=== PATIENT | female | born 1940 | race Hispanic/Latino ===

== ENCOUNTER 2019-11-01 08:10 | Day surgery (SDC) | payer MEDICARE ==
[2019-11-01] MEDS ORDERED: SODIUM CHLORIDE 0.9% 1000 ML 1,000 ML ONE (09:13)
--- NOTE | 2019-11-01 09:19 | Anesthesia Day of Surgery ---
Anesthesia Day of Surgery - Day of Surgery Patient Examined: Yes Patient H&P Reviewed: Yes Patient is NPO: Yes
--- NOTE | 2019-11-01 09:19 | Anesthesia Consultation ---
Anesthesia Consult and Med Hx Date of service: 11/01/19 - Airway Anesthetic Teeth Evaluation: Edentulous ROM Head & Neck: Adequate Mental/Hyoid Distance: Adequate Mallampati Class: Class II Intubation Access Assessment: Probably Good - Pulmonary Exam CTA: Yes - Cardiac Exam Cardiac Exam: RRR - Pre-Operative Health Status ASA Pre-Surgery Classification: ASA3 Proposed Anesthetic Plan: MAC - Pulmonary Hx Smoking: Yes Hx Respiratory Symptoms: No COPD: Yes Home Oxygen Therapy: No - Cardiovascular System Hx Hypertension: Yes (took antihypertensives this morning) Hx Coronary Artery Disease: Yes Hx Heart Attack/AMI: Yes (remote hx) Hx Percutaneous Transluminal Coronary Angioplasty (PTCA): Yes (x2, remote hx. Last dose ASA 7 days ago) Hx Cardia Arrhythmia: Yes (bradycardia) Hx Pacemaker: Yes Hx Internal Defibrillator: No - Central Nervous System CVA: No - Endocrine Hx Renal Disease: No Hx Liver Disease: No Hx Insulin Dependent Diabetes: No Hx Non-Insulin Dependent Diabetes: No Hx Thyroid Disease: No - Other Systems Hx Obesity: Yes - Additional Comments Anesthesia Medical History Comments: No hx anesthetic complications.
[2019-11-01] MEDS ORDERED: LIDOCAINE MPF (2%) 20 MG/1 ML VIAL 5 ML ONE (09:30)
[2019-11-01] MEDS ORDERED: SODIUM CHLORIDE 0.9% 1000 ML 1,000 ML IV SCH (11:30)
[2019-11-01] MEDS ORDERED: propofoL 200 MG/20 ML VIAL IV ONE ×2 (11:34→11:35)
[2019-11-01] MEDS ORDERED: fentaNYL 100 MCG/2 ML INJ ONE (11:34)
--- NOTE | 2019-11-01 12:03 | Short Stay Summary ---
Short Stay Documentation Date of service: 11/01/19 Narrative H&P: The patient presents for EGD and dilation of the esophagus for dysphagia and known stricture. - History Past Medical History: COPD, other (CKD) Past Surgical History: cholecystectomy, CABG, hysterectomy Social history: no significant social history, lives with family - Allergies and Medications Current Medications: Allergies acetaminophen [From Vicodin] Allergy (Verified 11/01/19 11:16) Unknown codeine Allergy (Verified 11/01/19 11:16) Unknown hydrocodone [From Vicodin] Allergy (Verified 11/01/19 11:16) Unknown iron Allergy (Verified 11/01/19 11:16) Unknown omeprazole Allergy (Verified 11/01/19 11:15) Unknown Home Medications Medication Instructions Recorded Confirmed Last Taken Type Albuterol Sulfate [Albuterol 0.63% 0.63 mg IH TID PRN 11/01/19 11/01/19 10/30/19 History NEBS] Aspirin [Adult Aspirin] 81 mg PO BID 11/01/19 11/01/19 10/28/19 History Cholecalciferol (Vitamin D3) 2,000 unit PO DAILY 11/01/19 11/01/19 Unknown History [Vitamin D3] Famotidine [Pepcid] 40 mg PO QHS 11/01/19 11/01/19 10/31/19 History Fluticasone/Salmeterol(Nf) [Advair 1 puff IH DAILY 11/01/19 11/01/19 10/31/19 History HFA 115-21 mcg] Hydralazine HCl 50 mg PO TID 11/01/19 11/01/19 10/31/19 History ISOSORBIDE MONOnitrate [Imdur ER] 30 mg PO DAILY 11/01/19 11/01/19 11/01/19 History Nitroglycerin (Nf) [Nitrostat] 0.3 mg SL PRN 11/01/19 11/01/19 10/17/19 History Pantoprazole [Protonix] 40 mg PO QDAY 11/01/19 11/01/19 10/31/19 History Polyethylene Glycol 3350 [Miralax] 255 gm PO PRN PRN 11/01/19 11/01/19 10/25/19 History Potassium Citrate [Potassium 10 meq PO DAILY 11/01/19 11/01/19 10/31/19 History Citrate ER] Rosuvastatin (Nf) [Crestor] 5 mg PO QHS 11/01/19 11/01/19 10/31/19 History Rosuvastatin (Nf) [Crestor] 5 mg PO QHS 11/01/19 11/01/19 10/31/19 History amLODIPine [Norvasc] 5 mg PO DAILY 11/01/19 11/01/19 11/01/19 History carvediloL [Coreg] 1 tab PO BID 11/01/19 11/01/19 11/01/19 07:30 History raNITIdine HCl [Zantac] 150 mg PO DAILY 11/01/19 11/01/19 10/31/19 History traMADoL [Ultram] 50 mg PO PRN 11/01/19 11/01/19 10/30/19 History Active Medications Sodium Chloride (Nacl 0.9% 1000 Ml) 1,000 mls @ 50 mls/hr IV DIRECT DERICK - Physical exam General appearance: no acute distress, well-nourished Integumentary: no rash, no growths, no abnormal pigmentation HEENT: Atraumatic, PERRLA, EOMI, Mucous membr. moist/pink Lungs: Normal air movement Breasts: deferred Heart: Regular rate, Normal S1, Normal S2, No murmurs Gastrointestinal: normoactive bowel sounds, no tenderness, no distended, no guarding, no obese Female Genitourinary: deferred Rectal Exam: deferred Extremities: no ischemia, pulses intact, pulses symmetrical, No edema, normal temperature, normal color, Full ROM Neurological: Normal gait, Normal speech, Strength at 5/5 X4 ext, Normal tone, Sensation intact, Cranial nerves 3-12 NL - Brief post op/procedure progress note Date of procedure: 11/01/19 Findings: see dictation Estimated blood loss: none Pathology: none Condition: stable - Disposition Condition at discharge: Good Disposition: DC-01 TO HOME OR SELFCARE - Discharge Diagnoses (1) Dysphagia Status: Acute (2) Esophageal stenosis Status: Acute Short Stay Discharge Plan Activity: other (no driving for 24 hours.) Weight Bearing Status: Full Weight Bearing Diet: advance as tolerated Follow up with: HEAVENLY HERZOG MD [Primary Care Provider] - 7 Days
--- NOTE | 2019-11-01 12:06 | Operative Report ---
Operative Report Operative Report: Date of procedure: 11/01/2019 Procedure: Esophagogastroduodenoscopy with balloon dilation of the distal esoph herman, 18 to 20 mm. Preprocedure diagnosis: Dysphagia to solid foods, history of a peptic stricture of the esophagus. Post procedure diagnosis: Moderate peptic stricture. Medium size hiatus hernia. Endoscopist: Dr. Loyd Anesthesia: Monitored anesthesia care per anesthesia department Medications: Propofol per anesthesia Estimated blood loss: 0 After careful discussion of the nature and purpose of the procedure as well as details the technique risks benefits and alternatives consent was obtained. The patient was placed in the left lateral decubitus position and medicated per anes thesia. The tip of the [employer] EQ 570 video scope was passed per orum under direct vision into the esophagus and advanced into the stomach and descending duodenum. The descending duodenum the duodenal bulb and pylorus were symmetrical and normal. The scope was withdrawn into the stomach and the stomach then gently insufflated with air. The antrum was normal. The stomach was further insufflated and the scope was then retroflexed and partially withdrawn. The cardia, fundus, and body of the stomach were within normal limits and easily distensible.a moderate sized hiatus hernia was present a pproximately 3 to 4 cm in length. The scope was then withdrawn in the forward position. The esophagogastric junction was at 35 cm. There was a stricture present at the esophagogastric junction although this provided no resistance to the scope movement. The esophageal body was otherwise normal throughout. Dilation was performed in light of symptoms. An 18 to 20 mm balloon was inserted in an uninflated state and positioned over the stricture. The balloon was insufflated gradually over 2 minutes. No bleeding or overt mucosal tear was evident. The procedure was was well tolerated and the patient was observed in recovery. Impressions: Peptic stricture. Status post dilation to 20 mm. Medium size hiatus hernia. Plan: Continue acid suppression. Redilate as needed. Office follow-up in 4 to 6 months. Electronically signed: Ezekiel Loyd MD
--- NOTE | 2019-11-01 12:20 | Post Anesthesia Evaluation ---
- Post Anesthesia Evaluation Patient Participated: Yes Airway Patent: Yes Stable Respiratory Function: Yes Nausea/Vomiting: No Temp > 96.8F: Yes Pain Manageable: Yes Adequeate Hydration: Yes Anesthesia Complications: No
[2019-11-01 12:28] VITALS: BP 157/58
== END 2019-11-01 13:10 | disposition home or self-care (01) ==
LOC: GIO 08:10
PROVIDERS: ATTEND Internal Medicine Gastroenterology
DX: R13.10 Dysphagia, unspecified (principal); K22.2 Esophageal obstruction; K44.9 Diaphragmatic hernia without obstruction or gangrene; I25.10 Atherosclerotic heart disease of native coronary artery without angina pectoris; I11.0 Hypertensive heart disease with heart failure; I50.9 Heart failure, unspecified; I48.91 Unspecified atrial fibrillation; E78.00 Pure hypercholesterolemia, unspecified; J43.9 Emphysema, unspecified; E66.9 Obesity, unspecified; K21.9 Gastro-esophageal reflux disease without esophagitis; M19.90 Unspecified osteoarthritis, unspecified site; Z98.890 Other specified postprocedural states; Z88.2 Allergy status to sulfonamides; Z88.8 Allergy status to other drugs, medicaments and biological substances; Z79.899 Other long term (current) drug therapy; Z79.82 Long term (current) use of aspirin; Z87.891 Personal history of nicotine dependence; Z98.49 Cataract extraction status, unspecified eye; Z95.0 Presence of cardiac pacemaker; Z90.49 Acquired absence of other specified parts of digestive tract; Z90.710 Acquired absence of both cervix and uterus; Z68.39 Body mass index [BMI] 39.0-39.9, adult
CPT/HCPCS: 43249; C1726; J2704; J3010; J7030